=== PATIENT | female | born 1995 | race Hispanic/Latino ===

== ENCOUNTER 2019-02-16 10:19 | Inpatient (IN) | payer OTHER ==
[2019-02-15 12:12] LABS: RPR Titer ND
[2019-02-15 12:15] LABS: Absolute Lymphocytes (CBC) 1.7 K/uL (0.7-4.9); Absolute Monocytes 0.6 K/uL (0.1-1.3); Basophils % 0.5 % (0-1.3); Eosinophils % 0.6 % (0-4.4); Hematocrit 27.6 % (36.0-45.0); Lymphocytes % 20.6 % (15.3-44.8); MPV 8.1 fL (7.6-11.3); Monocytes % 6.7 % (3.3-12.3); RBC Red Blood Cell Count 4.03 M/uL (3.86-4.86)
[2019-02-15 12:31] LABS: BUN Blood Urea Nitrogen 10 mg/dL (7-18); Bicarbonate 20 mmol/L (21-32); Glucose Level 138 mg/dL (74-106); Potassium 3.9 mmol/L (3.5-5.1); Sodium Level 141 mmol/L (136-145)
[2019-02-15 12:44] LABS: Anisocytosis 2+; Blood Morphology Comment NOTED (NOT SEEN); Platelet Estimate ADEQ; Poikilocytosis 1+; Polychromasia 1+; Urine White Blood Cell Casts OK
[2019-02-15 12:46] LABS: Urine Appearance CLEAR; Urine Bilirubin NEGATIVE (NEG); Urine Blood NEGATIVE (NEG); Urine Color YELLOW; Urine Glucose NEGATIVE (NEG); Urine Protein 1+ (NEG); Urine Specific Gravity 1.015 (1.005-1.030); Urine pH 6.5 (5.0-7.0)
[2019-02-15 12:57] LABS: Urine Bacteria 20-50 /HPF (<20); Urine RBC NONE SEEN /HPF (NONE SEEN)
[2019-02-15 12:58] LABS: Urine Culture Reflex Order REFLEXED
[2019-02-15 21:55] LABS: RPR (Rapid Plasma Reagin) NON-REACT (NON-REACT)
--- OUTSIDE RECORDS SUMMARY | 2019-02-16 10:22 | XMS REPORT ---
:1995 Author Organization [employer] Care Team Providers Name Role Phone Hever Sharma Provider Role Unavailable Allergies No Known Allergies Problems Problem Type Condition Code Onset Dates Condition Status Assessment Encounter for supervision of normal Z34.02 Active first in second trimester Problem Janet vaginitis B37.3 Active Problem Encounter for supervision of Z34.91 Active low-risk in first trimester Problem Encounter for supervision of normal Z34.02 Active first in second trimester Problem Needs flu shot Z23 Active Problem Well woman exam with routine Z01.419 Active gynecological exam Problem Overweight (BMI 25.0-29.9) E66.3 Active Problem Encounter for screening for Z11.3 Active infections with predominantly sexual mode of transmission Problem Encounter for initial prescription Z30.011 Active of contraceptive pills Medications No Known Medications Results No Known Results Summary Purpose [employer] Submission
--- OUTSIDE RECORDS SUMMARY | 2019-02-16 10:22 | XMS REPORT ---
:1995 Author Organization [employer] Care Team Providers Name Role Phone Hever Sharma Provider Role Unavailable Allergies No Known Allergies Problems Problem Type Condition Code Onset Dates Condition Status Problem Janet vaginitis B37.3 Active Problem Encounter [...]
--- OUTSIDE RECORDS SUMMARY | 2019-02-16 10:23 | XMS REPORT ---
:1995 Author Organization [employer] Care Team Providers Name Role Phone Hever Sharma Provider Role Unavailable Allergies No Known Allergies Problems Problem Type Condition Code Onset Dates Condition Status Problem Overweight (BMI 25.0-29.9) E66.3 Active Problem Encounter for initial prescription Z30.011 Active of contraceptive pills Problem Well woman exam with routine Z01.419 Active gynecological exam Problem Uterine size-date discrepancy in O26.843 Active third trimester Problem Encounter for supervision of Z34.03 Active normal first in third trimester Problem Supervision of high risk O09.93 Active in third trimester Problem Encounter for supervision of Z34.91 Active low-risk in first trimester Problem Encounter for supervision of Z34.02 Active normal first in second trimester Problem Polyhydramnios in third trimester O40.3XX0 Active complication, single or unspecified fetus Problem Needs flu shot Z23 Active Assessment Supervision of high risk O09.93 Active in third trimester Assessment Need for Tdap vaccination Z23 Active Problem Encounter for screening for Z11.3 Active infections with predominantly sexual mode of transmission Assessment Polyhydramnios in third trimester O40.3XX0 Active complication, single or unspecified fetus Problem Janet vaginitis B37.3 Active Medications No Known Medications Results No Known Results Immunizations Vaccine Administration Date TDAP > 7 Years-Adacel January 13, 2019 Summary Purpose [employer] Submission
--- OUTSIDE RECORDS SUMMARY | 2019-02-16 10:23 | XMS REPORT ---
:1995 Author Organization [employer] Care Team Providers Name Role Phone Hever Sharma Provider Role Unavailable Allergies No Known Allergies Problems Problem Type Condition Code Onset Dates Condition Status Problem Well woman exam with routine Z01.419 Active gynecological exam Problem Encounter for supervision of Z34.02 Active normal first in second trimester Problem Encounter for initial prescription Z30.011 Active of contraceptive pills Problem Encounter for screening for Z11.3 Active infections with predominantly sexual mode of transmission Problem Janet vaginitis B37.3 Active Problem Overweight (BMI 25.0-29.9) E66.3 Active Problem Supervision of high risk O09.93 Active in third trimester Problem Uterine size-date discrepancy in O26.843 Active third trimester Problem Macrosomia of fetus affecting O36.63X0 Active management of mother in third trimester, single or unspecified fetus Problem Needs flu shot Z23 Active Problem Encounter for supervision of Z34.91 Active low-risk in first trimester Problem Encounter for supervision of Z34.03 Active normal first in third trimester Problem Polyhydramnios in third trimester O40.3XX0 Active complication, single or unspecified fetus Medications No Known Medications Results No Known Results Summary Purpose [employer] Submission
--- OUTSIDE RECORDS SUMMARY | 2019-02-16 10:23 | XMS REPORT ---
[...] prescription Z30.011 Active of contraceptive pills Problem Supervision of high risk O09.93 Active [...] O40.3XX0 Active complication, single or unspecified fetus Assessment Macrosomia of fetus affecting O36.63X0 Active management of mother in third trimester, single or unspecified fetus Problem Encounter for screening for Z11.3 Active infections with predominantly sexual mode of transmission Assessment Polyhydramnios in third trimester O40.3XX0 Active complication, single or unspecified fetus Problem Janet vaginitis B37.3 Active Assessment Supervision of high risk O09.93 Active in third trimester Problem Overweight (BMI 25.0-29.9) E66.3 Active Medications No Known Medications Results No Known Results Summary Purpose [employer] Submission
--- OUTSIDE RECORDS SUMMARY | 2019-02-16 10:23 | XMS REPORT ---
:1995 Author Organization [employer] Care Team Providers Name Role Phone Hever Sharma Provider Role Unavailable Allergies, Adverse Reactions, Alerts Substance Reaction Event Type N.K.D.A. Info Not Available Non Drug Allergy Problems Problem Type Condition Code Onset Dates Condition Status Problem Encounter for supervision of Z34.02 Active normal first in second trimester Problem Needs flu shot Z23 Active Problem Encounter for supervision of Z34.91 Active low-risk in first trimester Problem macrosomia during O36.63X0 Active in third trimester, single or unspecified fetus Problem Macrosomia of fetus affecting O36.63X0 Active management of mother in third trimester, single or unspecified fetus Problem Polyhydramnios affecting O40.3XX0 Active in third trimester Problem Encounter for supervision of Z34.03 Active normal first in third trimester Problem Polyhydramnios in third trimester O40.3XX0 Active complication, single or unspecified fetus Problem Supervision of high risk O09.93 Active in third trimester Problem Uterine size-date discrepancy in O26.843 Active third trimester Assessment Polyhydramnios affecting O40.3XX0 Active in third trimester Assessment Supervision of high risk O09.93 Active in third trimester Assessment macrosomia during O36.63X0 Active in third trimester, single or unspecified fetus Problem Janet vaginitis B37.3 Active Problem Overweight (BMI 25.0-29.9) E66.3 Active Problem Well woman exam with routine Z01.419 Active gynecological exam Problem Encounter for screening for Z11.3 Active infections with predominantly sexual mode of transmission Problem Encounter for initial prescription Z30.011 Active of contraceptive pills Medications No Known Medications Results No Known Results Summary Purpose [employer] Submission
--- OUTSIDE RECORDS SUMMARY | 2019-02-16 10:23 | XMS REPORT ---
[...] transmission Problem Janet vaginitis B37.3 Active Problem Uterine size-date discrepancy in O26.843 Active [...] fetus Problem Needs flu shot Z23 Active Medications No Known Medications Results No Known Results Summary Purpose [employer] Submission
--- OUTSIDE RECORDS SUMMARY | 2019-02-16 10:23 | XMS REPORT ---
:1995 Author Organization [employer] Care Team Providers Name Role Phone Hever Sharma Provider Role Unavailable Allergies No Known Allergies Problems Problem Type Condition Code Onset Dates Condition Status Assessment Encounter for supervision of normal Z34.03 Active first in third trimester Problem Janet vaginitis B37.3 Active Assessment Overweight (BMI 25.0-29.9) E66.3 Active Problem Encounter for supervision of Z34.91 [...]
--- OUTSIDE RECORDS SUMMARY | 2019-02-16 10:23 | XMS REPORT ---
:1995 Author Organization [employer] Care Team Providers Name Role Phone AlysaHever jewell Provider Role Unavailable Allergies No Known Allergies Problems Problem Type Condition Code Onset Dates Condition Status Problem Janet vaginitis B37.3 Active Problem Well woman exam with routine Z01.419 Active gynecological exam Problem Overweight (BMI 25.0-29.9) E66.3 Active Problem Uterine size-date discrepancy in O26.843 Active third trimester Problem Polyhydramnios in third trimester O40.3XX0 Active complication, single or unspecified fetus Problem Encounter for supervision of Z34.03 Active normal first in third trimester Problem Needs flu shot Z23 Active Problem Encounter for initial prescription Z30.011 Active of contraceptive pills Problem Encounter for supervision of Z34.91 Active low-risk in first trimester Problem Encounter for supervision of Z34.02 Active normal first in second trimester Assessment Uterine size-date discrepancy in O26.843 Active third trimester Assessment Encounter for supervision of Z34.03 Active normal first in third trimester Assessment Polyhydramnios in third trimester O40.3XX0 Active complication, single or unspecified fetus Problem Encounter for screening for Z11.3 Active infections with predominantly sexual mode of transmission Medications No Known Medications Results No Known Results Summary Purpose [employer] Submission
[2019-02-16 10:49] VITALS: BMI 33.7
[2019-02-16] MEDS ORDERED: Ringers Lactate 1,000 ML IV PRN (10:52)
[2019-02-16] MEDS ORDERED: FAMOTIDINE 20 MG/2 ML VIAL IV ONE (10:55)
[2019-02-16] MEDS ORDERED: NA CIT/CITRIC AC 30 ML ORAL UDC PO ONE (10:55)
[2019-02-16] MEDS ORDERED: CEFAZOLIN 2 GM in NA CHLORIDE 0.9% 100 ML IVPB SCH (11:00)
[2019-02-16] MEDS ORDERED: METOCLOPRAMIDE 10 MG/2mL INJ IV SCH (11:00)
[2019-02-16] MEDS ORDERED: Ringers Lactate 1,000 ML IV SCH ×2 (11:00→17:00)
[2019-02-16] MEDS ORDERED: MORPHINE SULFATE/PF 1 MG/ML (10 ML AMP) ONE (11:44)
[2019-02-16] MEDS ORDERED: NS 0.9% VIAL 10 ML ONE (11:45)
[2019-02-16] MEDS ORDERED: EPHEDRINE SULF 50 MG/ML VIAL ONE (11:45)
[2019-02-16] MEDS ORDERED: OXYTOCIN 10 UNIT/ML ML IV ONE (11:45)
[2019-02-16] MEDS ORDERED: CEFAZOLIN/SWI 2gm 2 GM/20 ML SYR ONE (11:56)
[2019-02-16] MEDS ORDERED: CARBOPROST TROME 250 MCG/ML IM ONE (11:56)
[2019-02-16] MEDS ORDERED: METHYLERGONOVINE 0.2MG/ML AMP IM ONE (11:57)
[2019-02-16] MEDS ORDERED: MIDAZOLAM HCL 2 MG/2 ML INJ ONE (13:07)
[2019-02-16] MEDS ORDERED: PROPOFOL 200 MG/20 ML VIAL IV ONE (13:09)
[2019-02-16] MEDS ORDERED: METHYLERGONOVINE 0.2 MG TAB PO PRN (13:16)
[2019-02-16] MEDS ORDERED: ONDANSETRON 4 MG (ODT) TAB PO PRN (13:16)
[2019-02-16] MEDS ORDERED: BISACODYL 10 MG RECTAL SUPP RECT PRN (13:16)
[2019-02-16] MEDS ORDERED: DOCUSATE NA/SENNA CONC 1 TAB PO PRN (13:16)
[2019-02-16] MEDS ORDERED: ACETAMINOPHEN 500 MG TAB PO PRN (13:16)
--- NOTE | 2019-02-16 13:19 | P.OP ---
Net Technical Architect: Vernell Green Preoperative diagnosis: 39 weeks gestation, suspected macrosomia, elective section Primary procedure: Primary low transverse section Estimated blood loss: 800cc Specimen: cord blood, placenta Operative Technique: The patient was taken to the operating room where spinal anesthesia was administered without difficulty. The patient was prepped and draped in the usual sterile fashion in the dorsal supine position with a leftward tilt. A Pfannenstiel skin incision was made with the scalpel and carried through to the underlying layer of fascia using the scalpel. The fascia was incised in the midline and extended laterally using Lanier scissors. Judy clamps were used to elevate the superior aspect of the fascial incision, which was elevated, and the underlying rectus muscles were dissected off bluntly and using Lanier scissors. Attention was then turned to the inferior aspect of the fascial incision, which in similar fashion was grasped with Judy clamps, elevated, and the underlying rectus muscles were dissected off bluntly and using the Bovie. The rectus muscles were dissected in the midline. The peritoneum was identified and entered using Metzenbaum scissors; this incision was extended superiorly and inferiorly with good visualization of the bladder. The bladder blade was inserted. The vesicouterine peritoneum was identified and entered sharply using Metzenbaum scissors. This incision was extended laterally and the bladder flap was created digitally. The bladder blade was reinserted. The lower uterine segment was incised in a transverse fashion using the scalpel and extended using bandage scissors as well as manual traction. Clear fluid was noted. The was subsequently delivered. The nose and mouth were bulb suctioned. The cord was clamped and cut. The infant was subsequently handed to the awaiting nursery nurse. The placenta was delivered spontaneously intact with a three-vessel cord noted. The uterus was exteriorized and cleared of all clots and debris. The uterine incision was repaired in 2 layers using 0 vicryol sutures. Hemostasis was visualized. The vesical uterine peritoneum was reapproximated with 3 O Vicryl. The uterus was returned to the abdomen. The uterine incision was reexamined and it was noted to be hemostatic. The rectus muscles were reapproximated in the midline using 0 Vicryl. The fascia was closed with 1 Vicryl suture, the subcutaneous layer was closed with 2-0 plain gut, and the skin was closed with 3 O Vicryl on a Salo needle. Sponge, lap, and instrument counts were correct x2. The patient was stable at the completion of the procedure and was subsequently transferred to the recovery room in stable condition. Complications: None Drain(s): Urinary catheter Transferred to: Recovery Room Condition: Good
[2019-02-16] MEDS ORDERED: ONDANSETRON 4 MG/2 ML VIAL ONE (13:23)
[2019-02-16] MEDS ORDERED: Ringers Lactate 3,000 ML IV ONE (14:00)
[2019-02-16] MEDS: KETOROLAC 30 MG/ML INJ IV PRN (19:23)
[2019-02-16] MEDS: Oxycodone HCl/Acetaminophen 1 TAB TAB PO PRN (23:01)
[2019-02-17] MEDS: KETOROLAC 30 MG/ML INJ IV PRN (03:03)
[2019-02-17 05:20] LABS: Absolute Lymphocytes (CBC) 1.3 K/uL (0.7-4.9); Absolute Monocytes 1.3 K/uL (0.1-1.3); Absolute Neutrophil 10.7 K/uL (1.8-8.0); Basophils % 0.4 % (0-1.3); Eosinophils % 0.1 % (0-4.4); Hematocrit 23.3 % (36.0-45.0); Lymphocytes % 9.9 % (15.3-44.8); MPV 8.2 fL (7.6-11.3); Monocytes % 9.7 % (3.3-12.3); RBC Red Blood Cell Count 3.41 M/uL (3.86-4.86)
[2019-02-17] MEDS: Oxycodone HCl/Acetaminophen 1 TAB TAB PO PRN ×2 (10:45→20:58)
[2019-02-17] MEDS ORDERED: DOCUSATE NA 100 MG CAP PO PRN (12:03)
[2019-02-17] MEDS: FERROUS SULFATE 325 MG TAB PO SCH ×2 (15:15→20:58)
[2019-02-17] MEDS: IBUPROFEN 200 MG TAB PO PRN (15:15)
[2019-02-17] MEDS: PRENATAL VITAMIN PO SCH ×2 (15:16→15:17)
[2019-02-17] MEDS ORDERED: PRENATAL VITAMIN PO ONE (15:32)
[2019-02-18] MEDS: IBUPROFEN 200 MG TAB PO PRN (01:45)
[2019-02-18 08:02] VITALS: BP 114/72; TEMP 98.4
[2019-02-18] MEDS: Oxycodone HCl/Acetaminophen 1 TAB TAB PO PRN (09:12)
[2019-02-18] MEDS: FERROUS SULFATE 325 MG TAB PO SCH (09:18)
[2019-02-18] MEDS: PRENATAL VITAMIN PO SCH (09:19)
[2019-02-18] MEDS ORDERED: PRENATAL VITAMIN PO ONE (09:34)
--- NOTE | 2019-02-18 15:15 | P.PN ---
Date of Service: 02/17/19 The patient is postop day 1 from a repeat section. She is doing well. She is tolerating diet. Her pain is well controlled. She is afebrile. She has no complaints today she is bonding well with the baby and is breast-feeding. Vital sign stable General: Resting in bed no distress Head and neck: Normocephalic atraumatic, supple Respiratory: Symmetric nonlabored breathing Abdomen: Soft, mildly distended, mildly tender. Incision clean dry and intact Bilateral lower extremities: No clubbing cyanosis or edema. Assessment and plan patient is postop day 1 after repeat section she is doing well. Patient had preoperative anemia during the . Repeat CBCs have been performed hematocrit is stable. Will continue supplementing with iron as well as in the . Pain is well controlled. Discontinue IV discontinue Carrera catheter. Encourage patient to ambulate. Possible discharge home tomorrow.
--- NOTE | 2019-02-18 15:17 | P.DS ---
Admission Date: 02/16/19 Discharge Date: 02/18/19 Disposition: ROUTINE DISCHARGE Discharge Condition: GOOD Brief History of Present Illness: Patient is a 23-year-old who was admitted at 39 weeks gestation for elective section due to likely macrosomia. section was performed and baby was delivered found to be 9 lb 2 oz. Hospital Course: The patient has done well following the delivery. Her pain is been well controlled. She has been ambulating. She is tolerating regular diet. She is passing gas but has not had a bowel movement yet. She is voiding without difficulty. She denies fever chills. No headaches no shortness of breath no dizziness. Vital Signs/Physical Exam: Temp Pulse Resp BP Pulse Ox 98.4 F 87 18 114/72 100 02/18/19 07:59 02/18/19 07:59 02/18/19 07:59 02/18/19 07:59 02/16/19 16:58 General: Alert, In no apparent distress, Oriented x3 HEENT: Atraumatic Neck: Supple Respiratory: Normal air movement Cardiovascular: No edema, Normal pulses Gastrointestinal: No rebound, No guarding, Other (Incision clean dry and intact) Musculoskeletal: No clubbing, No swelling Integumentary: No rashes Neurological: Normal gait, Normal speech Laboratory Data at Discharge: WBC 13.4 K/uL (4.3-10.9) H D 02/17/19 05:00 Hgb 7.3 g/dL (12.0-15.0) L* 02/17/19 05:00 Hct 22.4 % (36.0-45.0) L 02/17/19 10:06 Plt Count 296 K/uL (152-406) 02/17/19 05:00 Sodium 141 mmol/L (136-145) 02/15/19 11:55 Potassium 3.9 mmol/L (3.5-5.1) 02/15/19 11:55 BUN 10 mg/dL (7-18) 02/15/19 11:55 Creatinine 0.57 mg/dL (0.55-1.3) 02/15/19 11:55 Glucose 138 mg/dL (74-106) H 02/15/19 11:55 Home Medications: Codeine/APAP [Tylenol W/Codeine #3 tab] 1 tab PO Q6HP PRN #24 tab 02/18/19 New Medications: Codeine/APAP [Tylenol W/Codeine #3 tab] 1 tab PO Q6HP PRN #24 tab PRN Reason: Pain Diet: Regular Activity: No lifting more than 10 lbs Followup: Hever Sharma DO [ACTIVE - CAN ADMIT] - (Follow up care with Dr. Sharma in 6 weeks for post visit.)
== END 2019-02-18 12:00 | disposition home or self-care (01) | DRG 788 ==
LOC: 2ND-WC 10:19
PROVIDERS: ADMIT Student in an Organized Health Care Education/Training Program; ATTEND Student in an Organized Health Care Education/Training Program
PROC: 10D00Z1 Extraction of Products of Conception, Low, Open Approach (ICD-10-PCS; principal; 2019-02-16 12:30)
DX: O36.63X0 Maternal care for excessive fetal growth, third trimester, not applicable or unspecified (principal); O99.02 Anemia complicating childbirth; D64.9 Anemia, unspecified; Z3A.39 39 weeks gestation of pregnancy; Z37.0 Single live birth
CPT/HCPCS: 36415; 80048; 81001; 85014; 85025; 86592; 86850; 86900; 86901; 87086; 87088; 88307; J0690; J2210; J2250; J2405; J2590; J2704; J2765